=== PATIENT | female | born 1945 | race Caucasian/White ===

== ENCOUNTER → 2017-12-16 | Outpatient (CLI) | payer MEDICARE, OTHER ==
--- NOTE | 2017-12-16 15:28 | 2DMMODE ---
[place] [address] 2 D/M-MODE ECHOCARDIOGRAM Name: ASHLEY DOMINIQUE Oscar Room: [facility]#: [id number] Admission: 12/16/17 Attend Phys: Dao Alvarado MD Discharge: Date of : 47 Date of Service: 12/16/17 1528 Report #: [id number] THIS REPORT FOR: //name// APPROVED REPORT Study performed: 12/16/2017 13:28:42 EXAM: Comprehensive 2D, Doppler, and color-flow Echocardiogram Patient Location: Out-Patient Status: routine BSA: 1.83 HR: 88 bpm BP: 125/62 mmHg Other Information Study Quality: Good Indications Dyspnea 2D Dimensions LVEF(%): 72.80 (>50%) IVSd: 12.35 (7-11mm) LVOT Diam: 20.22 (18-24mm) LVDd: 42.05 mm PWd: 10.94 (7-11mm) Ascending Ao: 30.11 (22-36mm) LVDs: 24.59 (25-40mm) Aortic Root: 27.58 mm Main's LVEF: 72.80 % Volumes Left Atrial Volume (Systole) LA ESV Index: 20.00 mL/m2 Aortic Valve AoV Peak Luis Miguel.: 1.71 m/s AO Peak Gr.: 11.71 mmHg LVOT Max P.50 mmHg AO Mean Gr.: 6.70 mmHg LVOT Mean P.58 mmHg LVOT Max V: 1.37 m/s AO V2 VTI: 35.27 cm LVOT Mean V: 0.86 m/s JAZZMINE (VTI): 2.45 cm2 LVOT V1 VTI: 26.90 cm Mitral Valve E/A Ratio: 0.69 MV Decel. Time: 290.07 [place] [address] 2 D/M-MODE ECHOCARDIOGRAM Name: TRIPTANISHA TOLEIGHANN Moore Room: [facility]#: [id number] Admission: 12/16/17 Attend Phys: Dao Alvarado MD Discharge: Date of : 47 Date of Service: 12/16/17 1528 Report #: [id number] MV E Max Luis Miguel.: 0.61 m/s MV PHT: 84.12 ms MVA (PHT): 2.62 cm2 TDI E/Lateral E': 6.10 E/Medial E': 7.63 Medial E' Luis Miguel.: 0.08 m/s Lateral E' Luis Miguel.: 0.10 m/s Pulmonary Valve PV Peak Luis Miguel.: 1.48 m/s PV Peak Gr.: 8.78 mmHg Left Ventricle The left ventricle is normal size. There is normal LV segmental wall motion. There is normal left ventricular wall thickness. Left ventricular systolic function is normal. The left ventricular ejection fraction is within the normal range. LVEF is 65-70%. Grade I - abnormal relaxation pattern. Right Ventricle The right ventricle is normal size. The right ventricular systolic function is normal. Atria The left atrium size is normal. The right atrium size is normal. Aortic Valve The aortic valve is normal in structure. No aortic regurgitation is present. There is no aortic valvular stenosis. Mitral Valve The mitral valve is normal in structure. There is no mitral valve regurgitation noted. No evidence of mitral valve stenosis. Tricuspid Valve The tricuspid valve is normal in structure. There is no tricuspid valve regurgitation noted. Pulmonic Valve The pulmonary valve is normal in structure. There is no pulmonic valvular regurgitation. Great Vessels The aortic root is normal in size. IVC is normal in size and collapses with >50% [place] [address] 2 D/M-MODE ECHOCARDIOGRAM Name: ASHLEY DOMINIQUE Room: [facility]#: [id number] Admission: 12/16/17 Attend Phys: Dao Alvarado MD Discharge: Date of : 47 Date of Service: 12/16/17 1528 Report #: [id number] Pericardium There is no pericardial effusion. <Conclusion> LVEF is 65-70%. Grade I - abnormal relaxation pattern. No aortic regurgitation is present. There is no mitral valve regurgitation noted. There is no tricuspid valve regurgitation noted. There is no pulmonic valvular regurgitation. <ELECTRONICALLY SIGNED> By: Dimple Coy MD, [facility] 12/16/17 1528 1528 1528 Dimple Coy MD, FAC /INF
== END ==
LOC: M.CRD 13:13
DX: R06.00 Dyspnea, unspecified (principal); R94.31 Abnormal electrocardiogram [ECG] [EKG]